=== PATIENT | female | born 1995 | race American Indian/Alaskan Native ===

== ENCOUNTER 2023-12-05 12:21 | Emergency (ER) | payer OTHER ==
[~2023-12-05] VITALS: Ht 152.4 cm; Wt 106.4 kg
[2023-12-05] MEDS ORDERED: LORazepam 2 MG/ML VIAL IV ONE (12:45)
[2023-12-05] MEDS ORDERED: MULTIVITAMINS 10 ML,FOLIC ACID 1 MG,THIAMINE HCL 100 MG in SODIUM CHLORIDE 0.9% 1,000 ML IV ONE (12:45)
[2023-12-05] MEDS ORDERED: ondansetron HCL 4 MG/2 ML VIAL IV ONE (12:45)
[2023-12-05 12:46] LABS: BASOPHILS 0.7 % (0-2); EOSINOPHILS 0.3 % (0-6); HEMATOCRIT 40.9 % (35.0-50.0); HEMOGLOBIN 13.6 g/dL (12.0-18.0); LYMPHOCYTES 21.7 % (24-44); MCH 31.4 (27-36); MCHC 33.4 g/dl (30-36); MCV 94.1 fl (81-99); MONOCYTES 5.7 % (0-12); NEUTROPHILS 71.6 % (39-80); PLATELET COUNT 374 K/uL (140-440); RBC 4.34 M/ul (4.3-5.7); RDW 14.2 (10.5-15.0)
[2023-12-05 13:01] LABS: ALBUMIN 3.6 g/dL (3.4-5.0); ALBUMIN/GLOBULIN RATIO 0.78 (1.1-2.4); BILIRUBIN, TOTAL 0.5 ng/dL (0.2-1.0); BUN/CREATININE RATIO 8.43 (6.0-28.6); CALCIUM 8.7 mg/dL (8.5-10.1); CREATININE, SERUM 0.83 mg/dL (0.55-1.02); MAGNESIUM 1.9 mg/dL (1.8-2.4); PROTEIN, TOTAL 8.2 g/dL (6.4-8.2)
[2023-12-05] MEDS ORDERED: CHLORDIAZEPOXID25 MG PO (13:10)
[2023-12-05 14:36] VITALS: BP 165/93
== END 2023-12-05 14:36 | disposition home or self-care (01) ==
LOC: ED 12:21
PROVIDERS: Family Medicine
DX: T67.2XXA Heat cramp, initial encounter (principal); F10.139 Alcohol abuse with withdrawal, unspecified; X30.XXXA Exposure to excessive natural heat, initial encounter
CPT/HCPCS: 36415; 80053; 83735; 85025; 96374; 96375; 99283-25; G0480; J2060; J2405; J3411; J7030

== ENCOUNTER 2024-04-06 14:40 | Emergency (ER) | payer OTHER ==
[~2024-04-06] VITALS: Ht 152.4 cm; Wt 112.0 kg
[~2024-04-06 14:40] MED LIST: CHLORDIAZEPOXID25 MG PO
[2024-04-06 15:52] LABS: BASOPHILS 0.7 % (0-2); EOSINOPHILS 0.2 % (0-6); HEMOGLOBIN 13.6 g/dL (12.0-18.0); LYMPHOCYTES 15.5 % (24-44); MCH 32.1 (27-36); MCV 94.6 fl (81-99); MONOCYTES 7.3 % (0-12); NEUTROPHILS 76.3 % (39-80); PLATELET COUNT 457 K/uL (140-440); RBC 4.22 M/ul (4.3-5.7); RDW 13.9 (10.5-15.0)
[2024-04-06 15:58] LABS: ALBUMIN 3.6 g/dL (3.4-5.0); ALBUMIN/GLOBULIN RATIO 0.77 (1.1-2.4); ALCOHOL, MEDICAL <3 ng/dL (<3); ALKALINE PHOSPHATASE 115 U/L (46-116); ALT (SGPT) 59 U/L (14-59); ANION GAP 15.7 (7-21); AST (SGOT) 40 U/L (15-37); BILIRUBIN, TOTAL 0.7 ng/dL (0.2-1.0); BUN/CREATININE RATIO 9.09 (6.0-28.6); CALCIUM 8.8 mg/dL (8.5-10.1); CARBON DIOXIDE 27 mmol/L (21-32); CHLORIDE 98 mmol/L (98-107); CREATININE, SERUM 0.88 mg/dL (0.55-1.02); GLOMERULAR FILTRATION RATE,EST 92 mL/min (>60); MAGNESIUM 1.8 mg/dL (1.8-2.4); POTASSIUM 3.7 mmol/L (3.5-5.1); PROTEIN, TOTAL 8.3 g/dL (6.4-8.2); UREA NITROGEN 8 mg/dL (7-18)
[2024-04-06] MEDS ORDERED: ondansetron HCL 4 MG/2 ML VIAL IV PRN (16:00)
[2024-04-06] MEDS ORDERED: SODIUM CHLORIDE 0.9% 1,000 ML IV ONE (16:00)
[2024-04-06] MEDS ORDERED: LORazepam 2 MG/ML VIAL IV PRN (16:00)
[2024-04-06] MEDS ORDERED: MULTIVITAMINS THERAPEUTIC 1 EA TAB PO ONE (16:00)
[2024-04-06] MEDS ORDERED: CHLORDIAZEPOXID25 MG PO (18:17)
[2024-04-06 18:34] VITALS: BP 136/86
== END 2024-04-06 18:29 | disposition home or self-care (01) ==
LOC: ED 14:40
PROVIDERS: Emergency Medicine
DX: F10.139 Alcohol abuse with withdrawal, unspecified (principal)
CPT/HCPCS: 36415; 80053; 83735; 84703; 85025; 96374; 96375; 96376; 99285-25; G0480; J2060; J2405; J7030